=== PATIENT | female | born 1935 | race Caucasian/White ===

== ENCOUNTER 2016-05-26 09:34 | Emergency (ER) | payer MEDICARE, OTHER ==
[2016-05-26] MEDS ORDERED: NITROGLYCERIN 0.4 MG TAB SL PRN (09:36)
[2016-05-26] MEDS ORDERED: ASPIRIN 81 MG CHEWABLE CTB PO STA (09:36)
[2016-05-26] MEDS ORDERED: SODIUM CHLORIDE 0.9% FLUSH 10 ML SOL IV PRN (09:36)
[2016-05-26 09:49] LABS: BASOPHILS % (AUTO) 0 % (0-3); EOSINOPHILS % (AUTO) 0 % (0-9); HEMATOCRIT 36 % (35-47); MEAN CORPUSCULAR HGB CONC 33.1 gm/dl (32.0-36.0); MEAN CORPUSCULAR VOLUME 89 fL (81-99); MONOCYTES % (AUTO) 9.6 % (0-12); NEUTROPHILS % (AUTO) 70.7 % (37-80)
[2016-05-26 10:09] LABS: CALCIUM 7.9 mg/dl (8.5-10.1); GLOM FILT RATE 57 mL/min (>60); POTASSIUM 3.9 mMol/L (3.5-5.1)
[2016-05-26 10:10] LABS: SODIUM 143 mMol/L (136-145)
[2016-05-26 10:50] VITALS: TEMP 99.3
[2016-05-26] MEDS ORDERED: ACETAMINOPHEN 500 MG 500 MG TAB PO ONE (11:05)
[2016-05-26] MEDS ORDERED: HYDROMORPHONE HYDROCHLORIDE 2 MG TAB PO ONE ×2 (11:06→11:59)
[2016-05-26] MEDS ORDERED: ACETAMINOPHEN 500 MG 500 MG TAB ONE (11:20)
[2016-05-26 14:37] VITALS: BP 121/74
[2016-05-26 14:38] VITALS: PULSE 69
[2016-05-26 14:39] VITALS: RESP 27; O2SAT 95
== END 2016-05-26 13:40 | disposition home or self-care (01) | DRG 313 ==
LOC: ED 09:34
DX: R07.9 Chest pain, unspecified (principal)
CPT/HCPCS: 36415; 71010; 80048; 82550; 84484; 85025; 85610; 85730; 93005; 99284